=== PATIENT | female | born 1950 | race Caucasian/White ===

== ENCOUNTER → 2020-04-23 | Outpatient (CLI) | payer MEDICARE, OTHER ==
[~2020-04-23] MED LIST: ASPIR-LOW81 MG PO; ATORVASTATIN CA20 MG PO; BRILINTA 90 MG90 MG PO; COREG 12.5MG12.5 MG PO; CRESTOR40 MG PO; FEOSOL325 MG PO; GLUCOPHAGE1000 MG PO; GLUCOTROL XL 22.5 MG PO; HABITROL 21 MG P1 EA TD; KEFLEX CAP 500500 MG PO; LANTUS100 UNIT/1 SQ; LOPRESSOR 25 MG25 MG PO; PLAVIX 75 MG TA75 MG PO; PROTONIX40 MG PO; SYNTHROID 50 M50 MCG PO; TRESIBA100 UNIT/1 SQ; TRULICITY1.5 MG/0.5 SQ; VITAMIN D31000 UNI1 PO
[2020-04-24 11:12] LABS: CREATININE, URINE 207.3 mg/dL (Not Estab.)
== END ==
LOC: LAB 11:44
PROVIDERS: Internal Medicine Nephrology
DX: N18.4 Chronic kidney disease, stage 4 (severe) (principal)
CPT/HCPCS: 36415; 80053; 81001; 82043; 82570; 84156

== ENCOUNTER → 2020-06-27 | Outpatient (CLI) | payer MEDICARE, OTHER | LOC: HEART 5 08:39 | DX: I25.118 Atherosclerotic heart disease of native coronary artery with other forms of angina pectoris (principal); R94.31 Abnormal electrocardiogram [ECG] [EKG]; R06.02 Shortness of breath; R93.1 Abnormal findings on diagnostic imaging of heart and coronary circulation; I34.0 Nonrheumatic mitral (valve) insufficiency | CPT/HCPCS: 78452; 93306; A9502; J2785 ==

== ENCOUNTER → 2020-08-06 | Outpatient (CLI) | payer MEDICARE, OTHER | LOC: EXRD 10:30 | DX: K76.0 Fatty (change of) liver, not elsewhere classified (principal); I25.10 Atherosclerotic heart disease of native coronary artery without angina pectoris; I65.23 Occlusion and stenosis of bilateral carotid arteries | CPT/HCPCS: 76700; 93880 ==

== ENCOUNTER → 2020-08-09 | Outpatient (CLI) | payer MEDICARE, OTHER | LOC: KOH-I 09:30 | DX: Z87.891 Personal history of nicotine dependence (principal) | CPT/HCPCS: 71271 ==

== ENCOUNTER → 2021-07-16 | Outpatient (CLI) | payer MEDICARE, OTHER | LOC: US 08:05 | DX: K76.0 Fatty (change of) liver, not elsewhere classified (principal) | CPT/HCPCS: 76700 ==